=== PATIENT | female | born 1965 | race African-American/Black ===

== ENCOUNTER 2016-07-11 14:08 | Emergency (ER) | payer MEDICAID ==
[~2016-07-11] VITALS: Ht 165.1 cm; Wt 70.0 kg
[~2016-07-11 14:08] MED LIST: AMLO5TAB4 PO; CYAN10009 PO; METO-296 PO; PROT40 PO; SUCR1TAB PO
[2016-07-11 14:13] VITALS: BP 118/70
[2016-07-11] MEDS ORDERED: KETOROLAC 60MG/2ML VIAL IM ONE (14:45)
== END 2016-07-11 16:04 | disposition left against medical advice (07) ==
LOC: ER 15:07
DX: S81.819A Laceration without foreign body, unspecified lower leg, initial encounter (principal); S80.12XA Contusion of left lower leg, initial encounter; I10 Essential (primary) hypertension; Z88.0 Allergy status to penicillin; Z96.659 Presence of unspecified artificial knee joint; W19.XXXA Unspecified fall, initial encounter; Y93.89 Activity, other specified; Y92.89 Other specified places as the place of occurrence of the external cause; Y99.8 Other external cause status
CPT/HCPCS: 99283